=== PATIENT | female | born 1965 | race Caucasian/White ===

== ENCOUNTER → 2017-03-14 | Outpatient (CLI) | payer OTHER ==
[~2017-03-14] MED LIST: ALBUTEROL17 GM INH; ALLEGRA180 MG PO; AMLODIPINE BESYL5 MG PO; AMOXIL875 MG PO; DITROPAN XL5 M1 PO; FLEXERIL10 MG PO; IBUPROFEN PO; KEFLEX500 M1 PO; LEVAQUIN750 MG PO; LEVOTHYROXINE100 MCG PO; LISINOPRIL-HCTZ1 T14 PO; NORCO 5/325 TAB1 TAB PO; PERCOCET 5-3251 TAB PO; PERCOCET 5/321 UDTAB PO; PHENERGAN DM1 ML PO; PREDNISONE PO; PROAIR HFA8.5 GM INH; TIZANIDINE HCL4 M1 PO; TOBRADEX EYE O3.5 G1 OS; ULTRAM PO; VOLTAREN75 MG PO; [UNRECOGNIZED DRUG - OTHER]
--- NOTE | ~2017-03-14 | CT71 ---
[facility] A Service of [facility] RADIOLOGY TEXT RESULTS PATIENT: JON CLAYTON LOCATION: [facility] : 63 UNIT #: [id number] AGE: [address]: ELOISA MENDOZA MD SEX: F ORDER DR: [id number] [place] [id number] O MR#: [id number] Acc #: [id number] NAME: JON CLAYTON : 1965 SEX: F STUDY DATE/TIME: 03/14/2017 10:15 UNIT: [facility] ROOM: STUDY DESCRIPTION: CT Head Wo Contrast Attending Physician: Eloisa Mendoza M.D. Referring Physician: Eloisa Mendoza M.D. Ordering Physician: Eloisa Mendoza M.D. Primary Care Physician: Eloisa Mendoza M.D. MEDICAL IMAGING REPORT This report is preliminary unless electronic signature is present. EXAM Head CT no contrast date of study 03/14/2017 PROCEDURE Axial unenhanced head CT. This CT exam was performed with one or more of the following radiation dose reduction techniques: automatic exposure control, adjustment of mA and/or kV according to patient size, and iterative reconstruction. COMPARISON None. CLINICAL HISTORY New onset seizure 1 week ago. FINDINGS The skull base and calvarium are normal. Brain parenchymal density is normal. There is no intracranial hemorrhage or mass, hydrocephalus or extraaxial fluid collection. The extracranial soft tissues are normal. IMPRESSION Normal negative unenhanced head CT. Dictated by... Lavell Plascencia M.D. THIS IS AN ELECTRONICALLY VERIFIED REPORT Lavell Plascencia M.D. at 03/14/2017 3:59 PM TEV/to [facility] A Service [facility] RADIOLOGY TEXT RESULTS PATIENT: JON CLAYTON LOCATION: [facility] : 63 UNIT #: [id number] AGE: [address]: ELOISA MENDOZA MD SEX: F ORDER DR: TD: 03/14/2017 15:17 JOB #: [id number] MEDICAL IMAGING REPORT Page 1 of 1
== END | disposition home or self-care (01) ==
LOC: SCT 10:00
DX: R56.9 Unspecified convulsions (principal)
CPT/HCPCS: 70450